=== PATIENT | male | born 1930 | race African-American/Black ===

== ENCOUNTER 2018-08-07 19:46 | Emergency (ER) | payer OTHER ==
[~2018-08-07] VITALS: Ht 175.3 cm; Wt 78.0 kg
[2018-08-07 20:51] VITALS: BP 169/89
== END 2018-08-07 22:15 | disposition home or self-care (01) ==
LOC: ER 19:46
DX: B35.4 Tinea corporis (principal); E11.9 Type 2 diabetes mellitus without complications; E78.5 Hyperlipidemia, unspecified; I25.10 Atherosclerotic heart disease of native coronary artery without angina pectoris; I10 Essential (primary) hypertension; F17.210 Nicotine dependence, cigarettes, uncomplicated

== ENCOUNTER 2019-01-30 14:31 | Emergency (ER) | payer OTHER ==
[~2019-01-30] VITALS: Ht 175.3 cm; Wt 77.1 kg
[2019-01-30 16:14] LABS: Albumin 3.2 g/dL (3.4-5.0); Calcium 8.6 mg/dL (8.5-10.1); Potassium 4.3 mmol/L (3.5-5.1)
[2019-01-30 16:17] LABS: BUN/Creatinine Ratio 7.3; Bilirubin, Total 0.3 mg/dL (0.2-1.0); Total Protein 8.2 g/dL (6.4-8.2)
[2019-01-30 16:27] LABS: Basophils # (auto) 0 uL; Basophils % (auto) 0.3 % (0.0-2.0); Eosinophils # (auto) 0.6 uL; Hemoglobin 12.5 g/dL (13.5-17.5); Lymphocytes # (auto) 1.4 uL; Lymphocytes % (auto) 19.9 % (10.0-50.0); Mean Corpuscular Hemoglobin 29.4 pg (28.0-32.0); Monocytes # (auto) 0.8 uL; Neutrophils # (auto) 4.2 uL; Neutrophils % (auto) 59.8 % (37.0-80.0); Platelet Count (auto) 250 10^3/uL (140-450); Red Blood Cells 4.27 10^6/uL (4.5-5.90); Red Cell Distribution Width 15.1 % (11.8-14.3)
[2019-01-30 19:06] VITALS: BP 138/75
== END 2019-01-30 20:00 | disposition home or self-care (01) ==
LOC: ER 14:31
DX: B35.3 Tinea pedis (principal); I25.10 Atherosclerotic heart disease of native coronary artery without angina pectoris; E11.9 Type 2 diabetes mellitus without complications; E78.5 Hyperlipidemia, unspecified; I10 Essential (primary) hypertension; F17.210 Nicotine dependence, cigarettes, uncomplicated
CPT/HCPCS: 36415; 80053; 85025

== ENCOUNTER 2019-07-20 14:52 | Inpatient (IN) | payer OTHER | END 2019-07-22 12:55 | disposition home or self-care (01) | LOC: ER 14:52 → TELE 14:53 → TELE-EAST 21:26 | DX: I16.0 Hypertensive urgency (principal); I71.4 Abdominal aortic aneurysm, without rupture; R60.0 Localized edema; I10 Essential (primary) hypertension ==